=== PATIENT | female | born 1995 | race Caucasian/White ===

== ENCOUNTER 2019-07-04 17:18 | Emergency (ER) | payer OTHER ==
[2019-07-04] MEDS: IBUPROFEN 600 MG TAB PO (18:10)
== END 2019-07-04 19:30 | disposition home or self-care (01) ==
LOC: FTE 17:18
DX: S33.5XXA Sprain of ligaments of lumbar spine, initial encounter (principal); S30.0XXA Contusion of lower back and pelvis, initial encounter; E11.9 Type 2 diabetes mellitus without complications; W22.8XXA Striking against or struck by other objects, initial encounter; Y92.9 Unspecified place or not applicable
CPT/HCPCS: 72100; 72170; 81025; 99284-25